=== PATIENT | male | born 2000 | race Caucasian/White ===

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

== ENCOUNTER 2023-03-21 12:16 | Emergency (ER) | payer OTHER, SELFPAY ==
[2023-03-21 12:19] VITALS: BP 114/65; PULSE 82; RESP 18; TEMP 36.8; O2SAT 100; BMI 22.3
[2023-03-21] MEDS: ONDANSETRON 4 MG/2 ML INJ IV (12:37)
[2023-03-21 12:49] LABS: Add Manual Diff / Slide Review NO; Basophils Absolute Auto 0 /uL (0-100); Basophils Percent Auto 0.2 % (0-2); Eosinophils Absolute Auto 0 /uL (0-450); Eosinophils Percent Auto 0.3 % (2-4); Hematocrit 46.1 % (41-53); Hemoglobin 15.8 g/dL (13.5-17.5); Lymphocytes Absolute Auto 1300 /uL (1100-4500); Mean Corpuscular HGB Conc 34.4 % (30-36); Mean Corpuscular Hemoglobin 30.1 PG (26-34); Mean Corpuscular Volume 87.7 fL (80-100); Monocytes Absolute Auto 900 /uL (0-900); Monocytes Percent Auto 7.1 % (3-14); Neutrophils Absolute Auto 10400 /uL (1500-7000); Neutrophils Percent Auto 82.4 % (50-75); Platelet Count 247 X10^3/uL (150-400); Red Blood Cell Count 5.25 X10^6/uL (4.5-5.9); Red Cell Distribution Width 13.2 % (11.6-14.8); White Blood Cell Count 12.6 X10^3/uL (4.5-11.0)
[2023-03-21 13:03] LABS: Alanine Aminotransferase 33 IU/L (<50); Albumin 4.4 g/dL (3.5-5.0); Albumin Globulin Ratio 1.3 (1.0-2.8); Alkaline Phosphatase 94 U/L (38-126); Aspartate Aminotransferase 38 IU/L (17-59); BUN Creatinine Ratio 19.2 (6-22); Bilirubin Total 0.7 mg/dL (0.2-1.3); Blood Urea Nitrogen 15 mg/dL (9-20); Calcium 9.8 mg/dL (8.4-10.2); Carbon Dioxide 25 mmol/L (22-32); Chloride 100 mmol/L (98-107); Estimated Glomerular Filt Rate > 60 mL/min (>60); Globulin 3.3 g/dL (1.7-4.1); Glucose 104 mg/dL (70-100); HEMOLYSIS 20 (0-50); Lipase 78 U/L (23-300); Potassium 4.2 mmol/L (3.4-5.1); Sodium 135 mmol/L (137-145); Total Protein 7.7 g/dL (6.3-8.2)
--- NOTE | 2023-03-21 13:19 | ED_ITS ---
HPI - Nausea/Vomiting/Diarrhea General Chief complaint: Nausea/Vomiting/Diarrhea Stated complaint: sent by [facility]/V/N/T-4/dehydrated Time Seen by Provider: 03/21/23 12:54 Source: patient Mode of arrival: Ambulatory History of Present Illness HPI Narrative: 22-year-old otherwise healthy male who is here for evaluation of 4 days of nausea vomiting and diarrhea. He does have some abdominal pain but it is related to the diarrhea. No recent travel. No recent antibiotics. No camping. Has not tried anything for symptoms prior to arrival. Denies any urinary symptoms. No prior abdominal surgeries. No known sick contacts. Related Data Previous Rx's Medication Instructions Recorded ondansetron 4 mg disintegrating 4 mg PO Q6H PRN nausea and 03/21/23 tablet vomiting #20 tabs Allergies Allergy/AdvReac Type Severity Reaction Status Date / Time No Known Allergies Allergy Verified 03/21/23 12:23 Review of Systems Constitutional Constitutional: Reports system reviewed and no additional complaints, except as documented Gastrointestinal Gastrointestinal: Reports system reviewed and no additional complaints, except as documented Genitourinary Genitourinary: Reports system reviewed and no additional complaints, except as documented Musculoskeletal Musculoskeletal: Reports system reviewed and no additional complaints, except as documented Patient History Social History Smoking Status: Never smoker Smoking Status: Never smoker Substance Use Type: marijuana Exam Initial Vital Signs Initial Vital Signs: Vital Signs Temperature 98.2 F 03/21/23 12:19 Pulse Rate 82 03/21/23 12:19 Respiratory Rate 18 03/21/23 12:19 Blood Pressure 114/65 03/21/23 12:19 Pulse Oximetry 100 03/21/23 12:19 Oxygen Delivery Method Room Air 03/21/23 12:19 Const General: cooperative, comfortable and No ill appearing HENGA Head: normal to inspection and normocephalic Resp Effort & Inspection: normal respiratory effort Auscultation: clear to auscultation bilaterally Cardio Rate: regular rate Rhythm: regular rhythm GI Inspection: normal to inspection and non-distended Palpation: soft and No tender Skin General: no rashes or lesions noted Neuro General: patient alert, patient awake and moves all extremities Extrem General: normal to inspection and capillary refill normal Course Orders Ordered: ED Orders 03/21/23 12:30 Complete Blood Count AUTO DIFF Stat Comprehensive Metabolic Panel Stat Lipase Stat 03/21/23 13:27 GI Panel (Film Array) Stat Discontinued Medications Sodium Chloride (Normal Saline 0.9%) 1,000 mls @ 1,000 mls/hr IV BOLUS ONE Stop: 03/21/23 13:53 Last Infusion: 03/21/23 14:51 Dose: 0 mls/hr Documented By: Admin: 03/21/23 13:51 Dose: 1,000 mls/hr Documented By: DEAN Ondansetron HCl (Ondansetron 4 Mg/2 Ml Inj) 4 mg IV NOW PRN PRN Reason: Nausea And Vomiting Last Admin: 03/21/23 12:37 Dose: 4 mg Documented By: LEXI Vital Signs Vital signs: Vital Signs - 8 hr 03/21/23 12:19 03/21/23 15:57 03/21/23 16:44 Temperature 98.2 F Pulse Rate 82 74 88 Respiratory Rate 18 74 H 16 Blood Pressure 114/65 119/62 114/66 Pulse Oximetry 100 100 100 Oxygen Delivery Method Room Air Room Air Room Air MDM - Nausea/Vomiting/Diarrhea Lab Data Attestation: I reviewed the patient's lab results. 03/21/23 12:30 03/21/23 12:30 Labs: Lab Results 03/21/23 03/21/23 03/21/23 Range/Units 12:30 12:30 13:27 WBC 12.6 H (4.5-11.0) X10^3/uL RBC 5.25 (4.5-5.9) X10^6/uL Hgb 15.8 (13.5-17.5) g/dL Hct 46.1 (41-53) % MCV 87.7 (80-100) fL MCH 30.1 (26-34) PG MCHC 34.4 (30-36) % RDW 13.2 (11.6-14.8) % Plt Count 247 (150-400) X10^3/uL Neut % (Auto) 82.4 H (50-75) % Lymph % (Auto) 10.0 L (25-40) % [place] % (Auto) 7.1 (3-14) % Eos % (Auto) 0.3 L (2-4) % Baso % (Auto) 0.2 (0-2) % Neut # (Auto) 77556 H (4529-9750) /uL Lymph # (Auto) 1300 (7276-1233) /uL [place] # (Auto) 900 (0-900) /uL Eos # (Auto) 0 (0-450) /uL Baso # (Auto) 0 (0-100) /uL Sodium 135 L (137-145) mmol/L Potassium 4.2 (3.4-5.1) mmol/L Chloride 100 (98-107) mmol/L Carbon Dioxide 25 (22-32) mmol/L BUN 15 (9-20) mg/dL Creatinine 0.78 (0.66-1.25) mg/dL Estimated GFR > 60 (>60) mL/min BUN/Creatinine Ratio 19.2 (6-22) Glucose 104 H (70-100) mg/dL Calcium 9.8 (8.4-10.2) mg/dL Total Bilirubin 0.7 (0.2-1.3) mg/dL AST 38 (17-59) IU/L ALT 33 (<50) IU/L Alkaline Phosphatase 94 (38-126) U/L Total Protein 7.7 (6.3-8.2) g/dL Albumin 4.4 (3.5-5.0) g/dL Globulin 3.3 (1.7-4.1) g/dL Albumin/Globulin Ratio 1.3 (1.0-2.8) Lipase 78 (23-300) U/L Stl C. cayetanensis PCR Not detected (Not Detect) Stool Rotavirus (PCR) Not detected (Not Detect) Stool Adenovirus (PCR) Not detected (Not Detect) Stool Astrovirus (PCR) Detected H (Not Detect) Stool Cryptosporidium PCR Not detected (Not Detect) Stl E.coli Shiga Tox PCR Not detected (Not Detect) St Sh/Enteroin Ecoli PCR Not detected (Not Detect) Stool E coli O157 PCR Not Reportable Stl Enterotoxigenic E PCR Not detected (Not Detect) Stool EPEC (PCR) Detected H (Not Detect) Stl E. histolytica PCR Not detected (Not Detect) Stool Giardia Lamblia PCR Not detected (Not Detect) Stool Sapovirus (PCR) Not detected (Not Detect) Stl P. shigelloides PCR Not detected (Not Detect) St Y.enterocolitica PCR Not detected (Not Detect) Stool Vibrio (PCR) Not detected (Not Detect) Stl Vibrio cholerae PCR Not detected (Not Detect) Stl Enteroaggr Ecoli PCR Not detected (Not Detect) Stl Norovirus GI/GII PCR Not detected (Not Detect) Campylobacter (PCR) Not detected (Not Detect) C. difficile Tox (PCR) Not detected (Not Detect) Salmonella (PCR) Not detected (Not Detect) Urine Dip Bedside Urine Glucose Negative Bedside Urine Bilirubin - Negative Bedside Urine Ketone +/- 5 Urine Specific [place] 1.015 Bedside Urine Occult Blood - Negative Bedside Urine pH 6.0 Bedside Urine Protein - Negative Bedside Urine Urobilinogen - Negative Bedside Urine Nitrite - Negative Bedside Urine Leukocytes - Negative Esterase MDM Narrative Medical decision making narrative: Patient does have a benign abdomen. He was able to tolerate oral intake after nausea medication. He does have virus and also E coli in his stool. Neither of which require antibiotics. I did discuss this with him. Supportive treatment for now. Advised that he increase his fluid intake. A prescription for nausea medication was sent to his pharmacy of choice. He was given return precautions. He expressed understanding and agreement. Discharge Plan Departure Patient Disposition: Home Clinical Impression: Nausea and vomiting, Diarrhea Instructions: Diarrhea, Nausea and Vomiting-Adult Activity Restrictions/Additional Instructions: Use the nausea medication as needed. Be sure that you were increasing your fluid intake. Your symptoms should improve over the next several days. Be sure your washing your hands. Return to the emergency department for worsening symptoms. Prescriptions: New ondansetron 4 mg tablet,disintegrating 4 mg PO Q6H PRN (Reason: nausea and vomiting) Qty: 20 0RF Referrals: Miscellaneous,Doctor, MD [Primary Care Provider] - Stand Alone Forms: Patient Portal/API
[2023-03-21] MEDS: SODIUM CHLORIDE 0.9% 1,000 ML 1000 ML IV (13:51)
[2023-03-21 15:38] LABS: Campylobacter Not Detected (Not Detect); Clostridium difficile toxin AB Not Detected (Not Detect); Enteroaggregative E.coli Not Detected (Not Detect); Enteropathogenic E.coli Detected (Not Detect); Enterotoxigenic E.coli It/st Not Detected (Not Detect); Plesiomonsa shigelloides Not Detected (Not Detect); Salmonella Not Detected (Not Detect); Shiga-like toxin-prod E.coli Not Detected (Not Detect); Vibrio Not Detected (Not Detect); Vibrio cholerae Not Detected (Not Detect); Yersinia enterocolitica Not Detected (Not Detect)
[2023-03-21 15:39] LABS: Adenovirus F 40/41 Not Detected (Not Detect); Astrovirus Detected (Not Detect); Cryptosporidium Not Detected (Not Detect); Cyclospora cayetanensis Not Detected (Not Detect); Entamoeba histolytica Not Detected (Not Detect); Giardia lamblia Not Detected (Not Detect); Norovirus GI/GII Not Detected (Not Detect); Rotavirus A Not Detected (Not Detect); Sapovirus Not Detected (Not Detect); Shigella/Enteroinvasive E.coli Not Detected (Not Detect)
[2023-03-21 15:57] VITALS: BP 119/62; PULSE 74; RESP 74; O2SAT 100
[2023-03-21 16:44] VITALS: BP 114/66; PULSE 88; RESP 16; O2SAT 100
== END 2023-03-21 16:45 | disposition home or self-care (01) ==
PROVIDERS: Emergency Provider Emergency Medicine
DX: R11.2 Nausea with vomiting, unspecified (principal); R19.7 Diarrhea, unspecified
CPT/HCPCS: 36415; 80053; 81003; 83690; 85025; 87507; 96361; 96374; 99284; J2405

== ENCOUNTER → 2025-06-09 12:43 | Outpatient (CLI) | payer OTHER, SELFPAY ==
--- NOTE | 2025-06-09 12:49 | DI.RAD.S_ITS ---
PROCEDURE: XR KNEE LT 3V INDICATIONS: Knee pain TECHNIQUE: 3 views of the knee were acquired. COMPARISON: None. FINDINGS: Bones: No fractures or dislocations. Joint spaces are well preserved. No significant patellar subluxation. No suspicious bony lesions. Soft tissues: No joint effusion. No suspicious soft tissue calcifications. IMPRESSION: No acute left knee fracture or dislocation. No significant joint effusion. Dictated by: Alvin Montilla M.D. on 06/09/2025 at 14:45 Approved by: Alvin Montilla M.D. on 06/09/2025 at 14:52
== END ==
PROVIDERS: Referring Provider Family Medicine; Visit Provider Family Medicine
DX: M25.562 Pain in left knee (principal)
CPT/HCPCS: 73562

== ENCOUNTER → 2025-06-22 18:43 | Outpatient (CLI) | payer OTHER, SELFPAY ==
--- NOTE | 2025-06-22 18:44 | DI.MRI.S_ITS ---
PROCEDURE: MR KNEE LT WO CON INDICATIONS: LEFT KNEE PAIN TECHNIQUE: Noncontrast sagittal PD fast spin echo and T2 fast spin echo with fat saturation, sagittal 3-D FLASH with fat saturation; coronal T1 spin echo and PD fast spin echo with fat saturation, and axial PD fast spin echo with fat saturation through the knee. COMPARISON: None. FINDINGS: Image quality: Diagnostic. Menisci: Medial meniscal body to posterior horn multidirectional tear with longitudinal tear of the meniscal body, horizontal undersurface tear of the meniscal body, longitudinal tear of the posterior horn to root. Partial tear of the meniscal capsular ligament of the body of the medial meniscus with edema tracking along the deep MCL fibers at the meniscal ligamentous attachment. Linear, vertically oriented fluid tracks along the posterior peripheral margin of the posterior horn of the lateral meniscus at the origin of the ligament of Wrisberg, concerning for avulsion with mild sprain of the ligament of Wrisberg. Ligaments: Complete tear of the proximal ACL. The posterior cruciate ligament is intact. Grade 1 sprain of the MCL with edema along the superficial and deep margins. The fibular collateral ligament is intact. Grade 1 sprain of the popliteus. Biceps femoris is intact. Sprain of the posterolateral corner involves the arcuate ligament and popliteofibular ligament. Extensor Mechanism: Quadriceps tendon is intact. The patellar tendon is intact. Complete tear of the tibial insertion of the inferior medial patellotibial ligament which results in a capsular tear and resulting extension of joint fluid into the anterior medial proximal low lower leg (series 8, image 28). Osseous Structures: Impaction fracture of the lateral femoral condyle which results in a deep sulcus sign, overlying meniscal contusion and surrounding trabecular bone marrow edema (series 10, image 25; series 9, image 25). Impaction injury of the posterior lateral tibial plateau with bone marrow edema tracking along the periphery of the medial tibial plateau adjacent to the meniscal tear. Bone marrow edema along the peripheral weight-bearing medial femoral condyle, likely a trabecular impaction injury/contusion. No suspicious marrow replacing process. Moderate to large joint effusion with extension of intra-articular joint fluid along the proximal lower leg secondary to capsular tearing of the inferior medial patella tibial ligament. Hoffa's fat pad is unremarkable. Partial displacement of torn ACL fibers into the anterior lateral joint line (series 13, image 20; series 10, image 18). Articular Cartilage: Patellofemoral compartment: Cartilage of the patellofemoral compartment is intact. Medial compartment: Cartilage of the medial tibiofemoral compartment is intact. Lateral compartment: Meniscal contusion superficial to the impaction injury in the lateral femoral condyle with overlying vertical fissure/cartilaginous fracture (series 13, image 17). Other: The visualized muscles and tendons appear normal for age. Small Villanueva's cyst. Normal neurovascular signal. Edema along the anterior medial knee adjacent to the capsular tear. IMPRESSION: 1. Pivot shift injury with impaction fracture of the lateral femoral condyle and microtrabecular contusions of the posterior tibial plateau and peripheral medial femoral condyle. 2. Complete tear of the proximal ACL with grade 1 sprain of the MCL. 3. Multidirectional tear of the medial meniscus with horizontal undersurface and longitudinal tear component within the body and posterior horn to root. Additional partial tearing of the menisco-capsular ligament of the medial meniscal body. 4. Vertical, longitudinal com of peripheral tear of the posterior horn of the lateral meniscus at the attachment of the ligament of Wrisberg to the popliteal hiatus. 5. Complete tear of the inferior medial patellar tibial ligament/capsular thickening. 6. Mild sprain of the posterolateral corner. Dictated by: Amor Gomez M.D. on 06/23/2025 at 8:01 Approved by: Amor Gomez M.D. on 06/23/2025 at 8:34
== END ==
LOC: MRI 18:44
PROVIDERS: Referring Provider Family Medicine; Visit Provider Family Medicine
DX: S83.005A Unspecified dislocation of left patella, initial encounter (principal); S72.422A Displaced fracture of lateral condyle of left femur, initial encounter for closed fracture; S80.02XA Contusion of left knee, initial encounter; S83.512A Sprain of anterior cruciate ligament of left knee, initial encounter; S83.242A Other tear of medial meniscus, current injury, left knee, initial encounter; S76.112A Strain of left quadriceps muscle, fascia and tendon, initial encounter; S83.92XA Sprain of unspecified site of left knee, initial encounter; M71.22 Synovial cyst of popliteal space [Baker], left knee; M25.462 Effusion, left knee; M25.562 Pain in left knee; X58.XXXA Exposure to other specified factors, initial encounter
CPT/HCPCS: 73721